=== PATIENT | male | born 1995 | race Caucasian/White ===

== ENCOUNTER 2025-10-03 10:36 | Emergency (ER) | payer OTHER, SELFPAY ==
[2025-10-03 10:37] VITALS: BP 147/82; PULSE 77; RESP 18; TEMP 39.2; O2SAT 100; BMI 30.2
[2025-10-03 10:41] VITALS: BP 130/68; PULSE 90; RESP 16; TEMP 39.2; O2SAT 99
--- NOTE | 2025-10-03 11:21 | NURSING ---
pt refuses to answer questions or change clothes.
--- NOTE | 2025-10-03 11:24 | ED.RN ---
SIGNIFICANT OTHER AT BEDSIDE WITH PATIENT COMES OUT OF ROOM. SHE STATES SHE WANTS A NURSE. THIS RN ENTERS ROOM AND ASKS HOW WE CAN HELP. SHE STATES HE IS COLD AND KEEPS MOANING. IT IS EXPLAINED TO HER AND THE PATIENT THAT HE HAS A FEVER AND WE CANNOT KEEP LAYERING BLANKETS ON HIM HE ALREADY HAS A BLANKET AND HIS COAT OVER TOP. WE WILL COMPLETE ANY PHYSICIANS ORDERS WHEN HE IS EVALUATED
--- NOTE | 2025-10-03 11:34 | EX.ED.DYSGE1 ---
HPI History of Present Illness Chief Complaint: General Illness Informant: patient and spouse/S.O. Narrative Narrative: 29-year-old male presenting to the emergency room with chief complaint of fever. Patient states that he is dying. It is reported that his had a fever Isai night and is now feeling better. He developed a runny nose and a cough yesterday thinks he may have vomited but he is not sure. Today had a temperature at home of 100.5. He was given Tylenol (possibly 1000 mg or 650 mg) this morning around 0700 hrs. He denies any diarrhea. He notes a slight sore throat. No rashes. PFSH PFSH Medical History unable to obtain Allergy/AdvReac Type Severity Reaction Status Date / Time No Known Allergies Allergy Verified 10/03/25 10:36 Surgical History unable to obtain Social History Smoking Status: Unknown if ever smoked ROS ROS ED Constitutional Constitutional ED: Reports chills and fever(s); Denies weight loss Eyes Eyes: Denies change in vision or diplopia ENT ENT ED: Reports rhinorrhea and sore throat; Denies ear pain Cardiovascular Cardiovascular: Denies chest pain, orthopnea, palpitations or racing heartbeat Respiratory/Chest Respiratory/Chest: Reports cough; Denies dyspnea or orthopnea Gastrointestinal Gastrointestinal: Denies abdominal pain, diarrhea, nausea or vomiting Genitourinary Genitourinary ED: Denies dysuria, hematuria or urinary frequency Musculoskeletal Musculoskeletal: Denies arthralgias or myalgias Integumentary Denies abscess or rash Neurologic Neurologic: Denies headache(s) or weakness Psychiatric Psychiatric: Reports anxiety; Denies depression, suicidal ideation or suicidal thoughts Endocrine Endocrinology: Denies polydipsia, polyphagia or polyuria Allergic/Immunologic Allergic/Immunologic ED: Denies mouth swelling, tongue swelling or urticaria EXAM Physical Exam Narrative Exam Narrative: Patient appears to be having a panic attack. He is hyperventilating. He cannot sit still. Const Vital Signs: 10/03/25 10:37 10/03/25 10:41 Temperature 102.5 F H 102.5 F H Temperature Source Oral Oral Pulse Rate 77 90 Respiratory Rate 18 16 Blood Pressure 147/82 H 130/68 H Blood Pressure Mean 103 88 Pulse Ox 100 99 Oxygen Delivery Method Room Air Room Air Positive well nourished and well developed General Appearance ED: well developed HEENT Reports normocephalic, head/scalp atraumatic, TM's clear and moist mucous membranes HEENT Narrative: Nasal congestion no significant oropharyngeal erythema cobblestoning tonsillar exudates or obvious abscess. Handling secretions normally. Tympanic Membrane ED: Yes TM's clear Eyes PERRL and EOMs intact bilaterally Neck no lymphadenopathy, supple and no JVD Neck Narrative: Patient easily moves his neck in all directions. Resp clear to auscultation bilaterally Resp Narrative: Patient is hyperventilating. Cardio regular rate, regular rhythm and no murmurs GI normal to inspection, nondistended, normoactive bowel sounds and non-tender Palpation: soft Back/Spine no CVA tenderness and normal ROM Extremity normal to inspection General Extremety ED: Negative for edema General Extremity: Negative for edema Neuro oriented x3 and CN's II-XII intact bilaterally Sensorium / Orientation: alert Motor Exam: strength 5/5 throughout Psych Psych Narrative: Patient appears panicked Mood & Affect: anxious; Negative for depressed or tearful Skin no rashes or lesions noted and no wounds MDM MDM MDM Narrative Medical decision making narrative: Differential diagnosis includes but not limited to viral URI bronchitis viral syndrome like influenza COVID pneumonia pharyngitis otitis media A chest x-ray viral swab and ibuprofen was ordered for the patient. I am told by nursing that he is refusing the chest x-ray would like to be discharged. He would also like me to fill out [facility] paperwork. Patient was advised that I can give him a work note. I would recommend fever control hydration. He appears to have the capacity and is with his to make the decision to leave the department without completing his evaluation. Most likely based on his history and the examination I did say that he has a viral respiratory illness. History & Record Review Discussion w/independent historian: Patient and Significant other Discharge Plan Triage Chief Complaint: General Illness ED Provider: Freddy Pradhan Dx/Rx/DC Orders Primary Care Provider: Care Physician,No Primary Referrals: NOT,DEFINED [Non-Staff, None] Print Language: Georgian
--- NOTE | 2025-10-03 12:09 | ED.RN ---
PT STANDING AT DOORWAY. STATES I NEED MY DR, PT STATES I WANT TO GO HOME
--- NOTE | 2025-10-03 12:26 | ED.RN ---
PT REQUESTS REFERRAL TO A FMLA . PT AWARE NEEDS A FAMILY
== END 2025-10-03 12:27 | disposition home or self-care (01) ==
PROVIDERS: Emergency Provider Emergency Medicine; Visit Provider Emergency Medicine
DX: U07.1 COVID-19 (principal); F41.9 Anxiety disorder, unspecified
CPT/HCPCS: 87631; 99282